=== PATIENT | male | born 2000 | race Caucasian/White ===

== ENCOUNTER 2023-07-14 11:27 | Emergency (ER) | payer MEDICAID ==
[~2023-07-14] VITALS: Ht 185.4 cm; Wt 109.4 kg
[2023-07-14 11:32] VITALS: BP 171/59; PULSE 109; RESP 16; TEMP 98.5; O2SAT 100
[2023-07-14] MEDS ORDERED: AMOX-117 PO ×3 (14:15→16:17)
[2023-07-14] MEDS ORDERED: OMEP40CA21 PO ×3 (14:15→16:17)
== END 2023-07-14 14:42 | disposition home or self-care (01) ==
LOC: ER 11:29
DX: J32.9 Chronic sinusitis, unspecified (principal); J20.9 Acute bronchitis, unspecified
CPT/HCPCS: 99283